=== PATIENT | female | born 1985 | race African-American/Black ===

== ENCOUNTER 2018-02-01 03:38 | Outpatient (CLI) ==
[2013-05-12 12:07] VITALS: BMI 46.5
== END 2018-02-01 03:48 | disposition short-term general hospital (02) ==
LOC: AMBL 03:38
PROVIDERS: ATTEND Internal Medicine Geriatric Medicine
DX: R51 Headache (principal); R11.2 Nausea with vomiting, unspecified; V89.2XXA Person injured in unspecified motor-vehicle accident, traffic, initial encounter